=== PATIENT | male | born 1965 | race Caucasian/White ===

== ENCOUNTER → 2016-09-30 | Outpatient (CLI) | payer OTHER ==
--- NOTE | 2016-09-30 18:22 | DRAGON STRESS TEST REPORT ---
EXERCISE TREADMILL TEST. DATE OF PROCEDURE: September 30, 2016 INDICATION: Patient with unspecified chest pain. Coronary risk factors: Diabetes, hypertension, dyslipidemia, family history of heart disease. Resting EKG: Sinus rhythm, no baseline ST segment changes. Stress EKG: No significant changes noted with with exercise treadmill. Reason for termination: Dyspnea and fatigue. PROCEDURE REPORT: Baseline heart rate: 73 bpm, blood pressure of 110/80 patient had no significant complaints at baseline. Patient was exercised on a standard Wagner protocol. Patient exercised for total of 10 minutes and 0 seconds. Exercise was stopped because of fatigue and shortness of breath. Patient had mild right-sided atypical chest discomfort at peak exercise which resolved quickly within a minute or 2 of exercise.. If automatic blood pressure recorded and if felt not accurate manual blood pressure then were recorded at appropriate intervals. Peak heart rate: 155 bpm, 90 of predicted maximum. Peak blood pressure: 185/94 mmHg. Double product: Adequate Exercise EKG: Showed some baseline artifact during exercise but no significant ST segment changes noted. CONCLUSIONS: Normal EKG and hemodynamic response to exercise. Patient did complain of right-sided chest discomfort which is felt to be atypical. Good exercise tolerance. Negative EKG changes with exercise. RECOMMENDATIONS: Patient to be informed that occasionally single-vessel disease and be missed. Aggressive risk factor modification, medical therapy. Landen Borrego M.D., [employer] Wiring Technician machined parts quality inspector, Board certified in cardiovascular diseases, Nuclear cardiology, Echocardiography Cardiac CT and cardiac MRI Ph. [phone] [facility]
== END ==
LOC: SP 09:13
PROVIDERS: ATTEND Specialist
DX: R07.9 Chest pain, unspecified (principal)
CPT/HCPCS: 93017